=== PATIENT | female | born 1955 | race American Indian/Alaskan Native ===

== ENCOUNTER 2019-09-12 11:23 | Outpatient (CLI) | payer MEDICARE, OTHER ==
--- NOTE | 2019-09-13 14:07 | Ultrasound Report ---
COMPLETE RIGHT BREAST ULTRASOUND HISTORY: Breast cancer survivor status post right mastectomy with implant reconstruction in 2012. She complains of pain in the right axilla. COMPARISON: None. FINDINGS: Complete sonographic evaluation including imaging of the four quadrants and subareolar aspe ct of the right breast demonstrates no distinct abnormality. No mass, cyst or suspicious shadowing. Intact breast implant. Ultrasound of the right axilla demonstrated 2 benign-appearing lymph nodes. T he lymph nodes are in the area of pain. IMPRESSION: Negative right breast ultrasound with benign appearing right axillary lymph nodes in the area of righ t axillary pain. No suspicious finding. Recommend clinical follow-up. BIRADS 2: Benign Signer Name: Bryce Degroot MD Signed: 09/13/2019 2:03 PM Workstation Name: [id number]
== END 2019-09-12 11:24 | disposition home or self-care (01) ==
LOC: SPVWC 11:23
PROVIDERS: ATTEND Surgery
DX: Z85.3 Personal history of malignant neoplasm of breast (principal)